=== PATIENT | female | born 1935 | race Caucasian/White ===

== ENCOUNTER 2024-01-31 15:09 | Inpatient (IN) | payer MEDICARE ==
[2024-01-31] MEDS ORDERED: Senokot S 8.6-50 MG TAB PO PRN (17:30)
[2024-01-31] MEDS ORDERED: Acetaminophen 650 MG Suppository PR PRN (17:30)
[2024-01-31] MEDS ORDERED: Acetaminophen 325 MG TAB PO PRN (17:30)
[2024-01-31] MEDS ORDERED: Ondansetron ODT 4 MG TAB PO PRN (17:30)
[2024-01-31] MEDS ORDERED: Bisacodyl 5 MG TAB PO PRN (17:30)
[2024-01-31] MEDS ORDERED: Famotidine 20 MG TAB PO SCH (21:00)
[2024-02-01] MEDS ORDERED: Non-Formulary Item 1 EACH (Rosuvastatin [Crestor] 20 MG Tab) PO SCH (09:00)
[2024-02-01] MEDS: Atorvastatin Calcium 40 MG TAB PO SCH ×2 (16:28→20:28)
[2024-02-01] MEDS: Carvedilol 25 MG TAB PO SCH ×2 (16:28→17:00)
[2024-02-01] MEDS: Aspirin Chewable 81 MG TAB PO SCH (16:29)
[2024-02-01] MEDS: Clopidogrel Bisulfate 75 MG TAB PO SCH (16:30)
[2024-02-01] MEDS: Enoxaparin 40 MG (0.4 mL) SYRINGE SC SCH (16:30)
[2024-02-01] MEDS: Lisinopril 10 MG TAB PO SCH (16:31)
[2024-02-01] MEDS: Hydrochlorothiazide 25 MG TAB PO SCH (16:31)
[2024-02-01] MEDS: Oxybutynin ER 5 MG TAB PO SCH (16:31)
[2024-02-01] MEDS: Sertraline 25 MG TAB PO SCH (16:32)
[2024-02-01] MEDS: Pantoprazole DR 40 MG TAB PO SCH (16:32)
[2024-02-01] MEDS: Ferrous Sulfate 325 MG TAB PO SCH (17:00)
[2024-02-01] MEDS: LATANOPROST OPTH R EYE SCH (20:27)
[2024-02-01] MEDS: Isosorbide Mononitrate 20 MG TAB PO SCH (20:28)
[2024-02-02 05:42] LABS: ALT (SGPT) 20 U/L (8-55); AST (SGOT) 20 U/L (5-34); Albumin 3.4 g/dL (3.4-4.8); Alkaline Phosphatase 88 U/L (40-110); Anion Gap 14 mmol/L (10-20); BUN (Urea Nitrogen) 16 mg/dL (9.8-20.1); Bilirubin, Total 0.5 mg/dL (0.2-1.2); Calc. Creatinine Clearance 60 mL/min (70-130); Calcium 8.5 mg/dL (7.8-10.44); Carbon Dioxide 23 mmol/L (23-31); Chloride 107 mmol/L (98-107); Estimated GFR 79; Globulin 3.3 g/dL (2.4-3.5); Glucose 108 mg/dL (83-110); Protein, Total 6.7 g/dL (5.8-8.1); Sodium 140 mmol/L (136-145)
[2024-02-02 06:01] LABS: Anisocytosis MODERATE=16-30 cells (100X) (0-5/hpf); Eosinophils 6 % (0-10); Hematocrit 31.6 % (36.0-47.0); Hypochromia SLIGHT = 6-15 cells (100X) (0-5/hpf); Lymphocytes 17 % (21-51); MDiff Complete? YES; Mean Corpuscular HGB CONC 28.5 g/dL (32.0-36.0); Mean Corpuscular Hemoglobin 21.6 pg (27.0-31.0); Mean Corpuscular Volume 75.7 fl (78.0-98.0); Mean Platelet Volume 8.6 fL (7.4-10.4); Monocytes 10 % (0-10); Neutrophil 67 % (42-75); Platelet Adequacy Comment Appears Adequate; Platelet Count 262 10x3/uL (130-400); RBC Distribution Width 23.1 % (11.5-14.5); Red Blood Cell (RBC) Count 4.18 mill/uL (4.20-5.40); White Blood Cell (WBC) Count 9.3 10x3/uL (4.8-10.8)
[2024-02-02] MEDS: TIMOLOL OPTH EA EYE SCH (08:46)
[2024-02-02] MEDS: DORZOLAMIDE EA EYE SCH (08:46)
[2024-02-06 06:10] LABS: Anion Gap 12 mmol/L (10-20); BUN (Urea Nitrogen) 18 mg/dL (9.8-20.1); Calc. Creatinine Clearance 59 mL/min (70-130); Calcium 8.9 mg/dL (7.8-10.44); Carbon Dioxide 24 mmol/L (23-31); Chloride 108 mmol/L (98-107); Estimated GFR 78; Glucose 103 mg/dL (83-110); Potassium 3.7 mmol/L (3.5-5.1); Sodium 140 mmol/L (136-145)
[2024-02-06 06:13] LABS: #Basophils 0.1 thou/uL (0.0-0.2); #Eosinphils 0.4 thou/uL (0.0-0.7); #Lymphocytes 1.9 thou/uL (1.20-3.40); #Monocytes 1.1 thou/uL (0.11-0.59); #Neutrophils 3.6 thou/uL (1.40-6.50); %Basophils 1.1 % (0.0-1.0); %Eosinophils 6.1 % (0.0-10.0); %Lymphocytes 26.9 % (21.0-51.0); %Monocytes 15.3 % (0.0-10.0); %Neutrophils 50.6 % (42.0-75.0); Hematocrit 31.8 % (36.0-47.0); Hemoglobin 9.1 g/dL (12.0-16.0); Mean Corpuscular HGB CONC 28.5 g/dL (32.0-36.0); Mean Corpuscular Hemoglobin 21.8 pg (27.0-31.0); Mean Corpuscular Volume 76.5 fl (78.0-98.0); Mean Platelet Volume 8.9 fL (7.4-10.4); Platelet Count 303 10x3/uL (130-400); RBC Distribution Width 23.3 % (11.5-14.5); Red Blood Cell (RBC) Count 4.15 mill/uL (4.20-5.40); White Blood Cell (WBC) Count 7.2 10x3/uL (4.8-10.8)
[2024-02-09 04:13] VITALS: BMI 26.2
[2024-02-10] MEDS: Fluticasone Propionate Nasal Spray 16 gm Bottle NASAL PRN (08:39)
[2024-02-10] MEDS: [UNRECOGNIZED DRUG - OTHER] EA EYE PRN (08:42)
[2024-02-10 11:49] VITALS: BMI 26.2
[2024-02-14 06:17] LABS: Anion Gap 14 mmol/L (10-20); BUN (Urea Nitrogen) 18 mg/dL (9.8-20.1); Calc. Creatinine Clearance 63 mL/min (70-130); Calcium 8.8 mg/dL (7.8-10.44); Carbon Dioxide 21 mmol/L (23-31); Chloride 108 mmol/L (98-107); Estimated GFR 83; Glucose 107 mg/dL (83-110); Potassium 4.4 mmol/L (3.5-5.1); Sodium 139 mmol/L (136-145)
[2024-02-14 07:24] VITALS: TEMP 98.3
[2024-02-14 08:37] LABS: #Basophils 0.1 thou/uL (0.0-0.2); #Eosinphils 0.3 thou/uL (0.0-0.7); #Lymphocytes 1.5 thou/uL (1.20-3.40); #Monocytes 0.9 thou/uL (0.11-0.59); #Neutrophils 3.8 thou/uL (1.40-6.50); %Basophils 1.5 % (0.0-1.0); %Eosinophils 5.1 % (0.0-10.0); %Lymphocytes 22.6 % (21.0-51.0); %Monocytes 13.7 % (0.0-10.0); %Neutrophils 57.2 % (42.0-75.0); Hematocrit 35.7 % (36.0-47.0); Mean Corpuscular HGB CONC 27.9 g/dL (32.0-36.0); Mean Corpuscular Hemoglobin 21.7 pg (27.0-31.0); Mean Corpuscular Volume 77.7 fl (78.0-98.0); Mean Platelet Volume 8.8 fL (7.4-10.4); Platelet Count 350 10x3/uL (130-400); RBC Distribution Width 24.1 % (11.5-14.5); White Blood Cell (WBC) Count 6.6 10x3/uL (4.8-10.8)
[2024-02-14 15:26] VITALS: BP 133/77
== END 2024-02-14 15:20 | disposition home health service (06) | DRG 948 ==
LOC: NAV ACUTE 02-01 11:17
PROVIDERS: ADMIT Family Medicine; ATTEND Family Medicine
DX: R53.81 Other malaise (principal); I48.0 Paroxysmal atrial fibrillation; I25.10 Atherosclerotic heart disease of native coronary artery without angina pectoris; I10 Essential (primary) hypertension; I73.9 Peripheral vascular disease, unspecified; E78.5 Hyperlipidemia, unspecified; K21.9 Gastro-esophageal reflux disease without esophagitis; D50.9 Iron deficiency anemia, unspecified; I65.21 Occlusion and stenosis of right carotid artery; H40.9 Unspecified glaucoma; R09.81 Nasal congestion; Z79.899 Other long term (current) drug therapy; Z79.02 Long term (current) use of antithrombotics/antiplatelets; Z79.82 Long term (current) use of aspirin; Z95.0 Presence of cardiac pacemaker
CPT/HCPCS: 36415; 80048; 80053; 84443; 85025; J1650

== ENCOUNTER 2024-04-01 07:29 | Inpatient (IN) | payer MEDICARE ==
[2024-04-01] MEDS ORDERED: Fluticasone Propionate Nasal Spray 16 gm Bottle NASAL PRN (17:36)
[2024-04-01] MEDS ORDERED: Ondansetron ODT 4 MG TAB SL PRN (17:42)
[2024-04-01] MEDS ORDERED: Senokot S 8.6-50 MG TAB PO PRN (17:42)
[2024-04-01 17:44] VITALS: BMI 26.2
[2024-04-01] MEDS: Losartan 50 MG TAB PO SCH (20:16)
[2024-04-01] MEDS: Atorvastatin Calcium 40 MG TAB PO SCH (20:16)
[2024-04-01] MEDS: Ferrous Sulfate 325 MG TAB PO SCH (20:16)
[2024-04-01] MEDS: Isosorbide Mononitrate 20 MG TAB PO SCH (20:18)
[2024-04-01] MEDS: Latanoprost 0.005% Ophth Soln 2.5 ml Bottle R EYE SCH (20:18)
[2024-04-01] MEDS: Carvedilol 25 MG TAB PO SCH (20:18)
[2024-04-02 05:38] LABS: ALT (SGPT) 15 U/L (8-55); AST (SGOT) 15 U/L (5-34); Albumin 3.1 g/dL (3.4-4.8); Alkaline Phosphatase 99 U/L (40-110); Anion Gap 14 mmol/L (10-20); BUN (Urea Nitrogen) 19 mg/dL (9.8-20.1); Bilirubin, Total 0.2 mg/dL (0.2-1.2); Calc. Creatinine Clearance 62 mL/min (70-130); Carbon Dioxide 22 mmol/L (23-31); Chloride 104 mmol/L (98-107); Estimated GFR 82; Globulin 3.6 g/dL (2.4-3.5); Glucose 119 mg/dL (83-110); Potassium 4.4 mmol/L (3.5-5.1); Protein, Total 6.7 g/dL (5.8-8.1); Sodium 136 mmol/L (136-145)
[2024-04-02 06:03] LABS: #Basophils 0.1 thou/uL (0.0-0.2); #Eosinphils 0.7 thou/uL (0.0-0.7); #Lymphocytes 2.2 thou/uL (1.20-3.40); #Monocytes 1.4 thou/uL (0.11-0.59); #Neutrophils 5.4 thou/uL (1.40-6.50); %Basophils 0.9 % (0.0-1.0); %Eosinophils 7.1 % (0.0-10.0); %Lymphocytes 22.5 % (21.0-51.0); %Neutrophils 55.5 % (42.0-75.0); Hemoglobin 12.2 g/dL (12.0-16.0); Mean Corpuscular HGB CONC 30.5 g/dL (32.0-36.0); Mean Corpuscular Volume 85.3 fl (78.0-98.0); Mean Platelet Volume 10.8 fL (7.4-10.4); Platelet Count 211 10x3/uL (130-400); RBC Distribution Width 22.2 % (11.5-14.5); Red Blood Cell (RBC) Count 4.69 mill/uL (4.20-5.40); White Blood Cell (WBC) Count 9.7 10x3/uL (4.8-10.8)
[2024-04-02 06:18] VITALS: BMI 26.2
[2024-04-02] MEDS: DorzolamidE/Timolol 2%/0.5% Ophth Soln 10 ml Bottle EA EYE SCH (08:51)
[2024-04-02] MEDS: Hydrochlorothiazide 25 MG TAB PO SCH (08:53)
[2024-04-02] MEDS: Oxybutynin ER 5 MG TAB PO SCH (08:53)
[2024-04-02] MEDS: Aspirin Chewable 81 MG TAB PO SCH (08:53)
[2024-04-02] MEDS: Pantoprazole DR 40 MG TAB PO SCH (08:54)
[2024-04-02] MEDS: Sertraline 25 MG TAB PO SCH (08:54)
[2024-04-02] MEDS: Clopidogrel Bisulfate 75 MG TAB PO SCH (08:54)
[2024-04-02] MEDS: Acetaminophen 325 MG TAB PO PRN (21:30)
[2024-04-05] MEDS: Ferrous Sulfate 325 MG TAB PO SCH (08:21)
[2024-04-07] MEDS: hydrALAZINE 25 MG TAB PO PRN (16:40)
[2024-04-07] MEDS: hydrALAZINE 25 MG TAB PO SCH (20:13)
[2024-04-10 06:08] LABS: Anion Gap 14 mmol/L (10-20); BUN (Urea Nitrogen) 18 mg/dL (9.8-20.1); Calc. Creatinine Clearance 59 mL/min (70-130); Calcium 8.5 mg/dL (7.8-10.44); Carbon Dioxide 22 mmol/L (23-31); Chloride 104 mmol/L (98-107); Estimated GFR 77; Glucose 107 mg/dL (83-110); Potassium 4.1 mmol/L (3.5-5.1); Sodium 136 mmol/L (136-145)
[2024-04-10 09:47] LABS: #Basophils 0.1 thou/uL (0.0-0.2); #Eosinphils 0.6 thou/uL (0.0-0.7); #Lymphocytes 1.2 thou/uL (1.20-3.40); #Monocytes 0.8 thou/uL (0.11-0.59); #Neutrophils 5.9 thou/uL (1.40-6.50); %Basophils 0.7 % (0.0-1.0); %Eosinophils 6.8 % (0.0-10.0); %Lymphocytes 13.6 % (21.0-51.0); %Monocytes 9.4 % (0.0-10.0); %Neutrophils 69.5 % (42.0-75.0); Hematocrit 39.4 % (36.0-47.0); Hemoglobin 12.2 g/dL (12.0-16.0); Mean Corpuscular HGB CONC 30.9 g/dL (32.0-36.0); Mean Corpuscular Hemoglobin 26.3 pg (27.0-31.0); Mean Corpuscular Volume 84.9 fl (78.0-98.0); Platelet Count 244 10x3/uL (130-400); RBC Distribution Width 21.1 % (11.5-14.5); Red Blood Cell (RBC) Count 4.64 mill/uL (4.20-5.40); White Blood Cell (WBC) Count 8.5 10x3/uL (4.8-10.8)
[2024-04-11 08:00] VITALS: TEMP 98.2
[2024-04-11 09:42] VITALS: BP 126/56
== END 2024-04-11 10:34 | disposition home health service (06) | DRG 948 ==
LOC: NAV ACUTE 17:22
PROVIDERS: ADMIT Family Medicine; ATTEND Family Medicine
DX: R53.81 Other malaise (principal); I48.0 Paroxysmal atrial fibrillation; I25.10 Atherosclerotic heart disease of native coronary artery without angina pectoris; I10 Essential (primary) hypertension; I73.9 Peripheral vascular disease, unspecified; E78.5 Hyperlipidemia, unspecified; K21.9 Gastro-esophageal reflux disease without esophagitis; D64.9 Anemia, unspecified; I49.5 Sick sinus syndrome; R32 Unspecified urinary incontinence; F32.9 Major depressive disorder, single episode, unspecified; Z98.890 Other specified postprocedural states; Z95.0 Presence of cardiac pacemaker; Z90.49 Acquired absence of other specified parts of digestive tract; Z90.710 Acquired absence of both cervix and uterus; Z79.899 Other long term (current) drug therapy; Z79.82 Long term (current) use of aspirin
CPT/HCPCS: 36415; 80048; 80053; 85025